=== PATIENT | female | born 1940 | race African-American/Black ===

== ENCOUNTER → 2021-02-08 | Outpatient (CLI) | payer OTHER | LOC: SJCVC 12:46 | PROVIDERS: ATTEND Internal Medicine Cardiovascular Disease | DX: R94.31 Abnormal electrocardiogram [ECG] [EKG] (principal); R06.02 Shortness of breath; D68.59 Other primary thrombophilia; I82.403 Acute embolism and thrombosis of unspecified deep veins of lower extremity, bilateral; E78.00 Pure hypercholesterolemia, unspecified; I51.89 Other ill-defined heart diseases; E78.5 Hyperlipidemia, unspecified; Z90.49 Acquired absence of other specified parts of digestive tract; Z90.710 Acquired absence of both cervix and uterus; Z98.890 Other specified postprocedural states; Z88.1 Allergy status to other antibiotic agents; Z88.5 Allergy status to narcotic agent; Z79.01 Long term (current) use of anticoagulants; Z79.899 Other long term (current) drug therapy; Z87.891 Personal history of nicotine dependence; Z82.49 Family history of ischemic heart disease and other diseases of the circulatory system ==

== ENCOUNTER → 2021-03-04 | Outpatient (CLI) | payer OTHER | LOC: RAD 10:14 → NUC 10:14 | PROVIDERS: ATTEND Pediatrics | DX: J98.4 Other disorders of lung (principal) ==

== ENCOUNTER → 2021-03-16 | Outpatient (CLI) | payer OTHER | LOC: NUC 07:35 → RAD 09:43 | PROVIDERS: ATTEND Pediatrics | DX: R06.02 Shortness of breath (principal); R07.89 Other chest pain ==

== ENCOUNTER → 2021-07-16 | Outpatient (CLI) | payer OTHER | LOC: CAT 10:01 | PROVIDERS: ATTEND Pediatrics | DX: J84.10 Pulmonary fibrosis, unspecified (principal); J43.9 Emphysema, unspecified; J98.4 Other disorders of lung; I25.10 Atherosclerotic heart disease of native coronary artery without angina pectoris; I70.0 Atherosclerosis of aorta ==